=== PATIENT | male | born 1980 | race Two or more races ===

== ENCOUNTER 2023-03-09 16:07 | Emergency (ER) | payer MEDICAID, OTHER ==
[~2023-03-09] VITALS: Ht 172.7 cm; Wt 102.5 kg
[2023-03-09] MEDS ORDERED: LIDOCAINE 1% HCL (LOCAL ANESTH.) INJ 20ML MDV ID ONE (16:30)
[2023-03-09] MEDS ORDERED: HYDROcodone-ACET 5/325MG TAB PO ONE (18:15)
[2023-03-09] MEDS ORDERED: DOXYCYCLINE 100 MG TAB/CAP PO ONE (18:15)
[2023-03-09] MEDS ORDERED: ONDANSETRON ODT 4 MG TAB PO ONE (18:15)
[2023-03-09] MEDS ORDERED: DOXY-286 PO (18:21)
[2023-03-09] MEDS ORDERED: MUPI2OIN2 EX (18:21)
[2023-03-09] MEDS ORDERED: IBUP1TAB5 PO (18:21)
[2023-03-09 18:43] VITALS: BP 101/68
== END 2023-03-09 18:51 | disposition home or self-care (01) ==
LOC: ER 16:07
DX: S61.412A Laceration without foreign body of left hand, initial encounter (principal); W31.89XA Contact with other specified machinery, initial encounter; Y93.89 Activity, other specified; Y92.89 Other specified places as the place of occurrence of the external cause; Y99.8 Other external cause status
CPT/HCPCS: 12002; 73130; 99283; J2001

== ENCOUNTER 2024-01-28 05:51 | Day surgery (SDC) | payer MEDICAID, OTHER ==
[2024-01-26 11:00] LABS: Urine Bacteria None Seen /hpf (None Seen)
[2024-01-26 11:02] LABS: Basophils # (auto) 0.1 10 ^3/uL (0-0.2); Basophils % (auto) 0.8 % (0.0-2.0); Eosinophils # (auto) 0.6 10 ^3/uL (0-0.8); Eosinophils % (auto) 8.7 % (0.0-7.0); Hematocrit 46.9 % (41.0-53.0); Lymphocytes # (auto) 2.2 10 ^3/uL (0.4-5.4); Mean Corpuscular Volume 88.1 fL (80.0-100.0); Monocytes # (auto) 0.5 10 ^3/uL (0-1.3); Monocytes % (auto) 7.6 % (0.0-12.0); Neutrophils # (auto) 3.6 10 ^3/uL (1.6-8.6); Neutrophils % (auto) 50.9 % (37.0-80.0); Nucleated Red Blood Cells % 0.1 %; Red Blood Cells 5.33 10^6/uL (4.5-5.90); Red Cell Distribution Width 13.5 % (11.8-14.3)
[2024-01-26 11:17] LABS: INR 0.98 (0.9-1.15); Partial Thromboplastin Time 29.1 SEC (24.5-34.5); Prothrombin Time 10.3 sec (9.3-11.8); Urine Blood Negative /uL (Negative); Urine Clarity Clear (Clear); Urine Color Light-Yellow (Yellow); Urine Protein, UAD Negative (Negative); Urine Specific Gravity 1.017 (1.001-1.035); Urine Urobilinogen Normal (Negative); Urine WBC <1 /hpf (0 - 3)
[2024-01-26 11:29] LABS: Alanine Aminotransferase 166 U/L (7-40); Albumin 4.2 g/dL (3.2-4.8); Alkaline Phosphatase 120 U/L (46-116); Anion Gap 7 (5-15); Aspartate Aminotransferase 96 U/L (13-40); BUN/Creatinine Ratio 13.5 (10.0-20.0); Blood Urea Nitrogen 10 mg/dL (9-23); Calcium 8.9 mg/dL (8.5-10.1); Carbon Dioxide 24 mmol/L (20-30); Chloride 106 mmol/L (98-107); Glucose 115 mg/dL (74-106); Potassium 4.2 mmol/L (3.5-5.1); Sodium 137 mmol/L (136-145)
[2024-01-26 11:30] LABS: Bilirubin, Total 0.9 mg/dL (0.2-1.0); Total Protein 6.6 g/dL (5.7-8.2)
[~2024-01-28] VITALS: Ht 172.7 cm; Wt 111.1 kg
[2024-01-28] MEDS ORDERED: BUPIVACAINE 0.25% INJ 50ML VIAL ONE (06:53)
[2024-01-28] MEDS ORDERED: LIDOCAINE W/ EPINEPHRINE 2% INJ 20ML VIAL ONE (06:54)
[2024-01-28] MEDS ORDERED: SUCCINYLCHOLINE CHLORIDE 20 MG/ML 10ML VIAL IV ONE (07:22)
[2024-01-28] MEDS ORDERED: fentaNYL CITRATE 100 MCG/2 ML VL ONE (07:25)
[2024-01-28] MEDS ORDERED: PROPOFOL 10 MG/ML 20 ML IV ONE (07:30)
[2024-01-28] MEDS ORDERED: DexAMETHasone SOD PHOS 10MG/1ML VIAL INJ ONE (07:34)
[2024-01-28] MEDS ORDERED: ONDANSETRON HCL 4 MG/2 ML VIAL ONE (07:34)
[2024-01-28] MEDS ORDERED: ROCURONIUM 10MG/ML 10ML VIAL IV ONE (07:34)
[2024-01-28] MEDS ORDERED: MEPERIDINE HCL (50 MG/ML) 1 ML VIAL ONE (07:40)
[2024-01-28] MEDS ORDERED: SUGAMMADEX 200mg/2ml Vial (100MG/ML) IV ONE (07:56)
[2024-01-28] MEDS ORDERED: POVIDONE IODINE 10 % TOPICAL OINT 30GM TOP ONE (07:57)
[2024-01-28 08:07] VITALS: TEMP 98.4; O2SAT 97
[2024-01-28] MEDS ORDERED: ONDANSETRON HCL 4 MG/2 ML VIAL IV ONE (08:15)
[2024-01-28] MEDS ORDERED: MEPERIDINE HCL (25 MG/ML) 1ML VIAL IV PRN (08:15)
[2024-01-28] MEDS ORDERED: ACETAMINOPHEN IV 100 ML IV ONE (08:16)
[2024-01-28] MEDS: ACETAMINOPHEN IV 1000 MG/100ML (10MG/ML) IV PRN (08:18)
[2024-01-28] MEDS: HYDROmorphone HCL 2 MG/ML VL/or syr IV PRN (09:04)
[2024-01-28 09:22] VITALS: BP 123/80; PULSE 84; RESP 17; O2SAT 93
== END 2024-01-28 09:50 | disposition home or self-care (01) ==
LOC: SUR 05:51
PROVIDERS: ATTEND Surgery
DX: K42.0 Umbilical hernia with obstruction, without gangrene (principal); E66.9 Obesity, unspecified; Z88.0 Allergy status to penicillin; Z79.899 Other long term (current) drug therapy; Z98.890 Other specified postprocedural states
CPT/HCPCS: 36415; 49592; 80053; 81001; 85025; 85610; 85730; 86850; 86900; 86901; C1781; J0131; J0330; J1100; J1170; J2175; J2405; J2704; J3010; J3490

== ENCOUNTER 2024-02-06 15:45 | Emergency (ER) | payer OTHER ==
[~2024-02-06] VITALS: Ht 172.7 cm; Wt 116.3 kg
[2024-02-06 17:02] VITALS: BP 135/84; PULSE 93; RESP 18; TEMP 98.1; O2SAT 96
[2024-02-06] MEDS ORDERED: CLOB0.05 TOP (17:07)
[2024-02-06] MEDS ORDERED: METH4PAK PO (17:07)
== END 2024-02-06 17:26 | disposition home or self-care (01) ==
LOC: ER 15:45
DX: L25.9 Unspecified contact dermatitis, unspecified cause (principal); Z88.0 Allergy status to penicillin